=== PATIENT | male | born 1995 | race Hispanic/Latino ===

== ENCOUNTER 2024-04-28 18:11 | Emergency (ER) | payer SELFPAY ==
[~2024-04-28] VITALS: Ht 167.6 cm; Wt 89.5 kg
[2024-04-28 18:23] VITALS: BP 119/75; TEMP 97.9; O2SAT 96
== END 2024-04-29 01:00 | disposition left against medical advice (07) ==
LOC: EDBD 18:11 → M ED 18:11
DX: Z53.21 Procedure and treatment not carried out due to patient leaving prior to being seen by health care provider (principal)